=== PATIENT | female | born 1940 | race Caucasian/White ===

== ENCOUNTER 2017-12-18 15:34 | Inpatient (IN) | payer MEDICARE, OTHER ==
[~2017-12-18] VITALS: Ht 157.5 cm; Wt 68.3 kg
[2017-12-18] MEDS ORDERED: SODIUM CHLORIDE 0.9% 1,000ML IVBOLUS ONE ×2 (16:00→22:30)
[2017-12-18] MEDS ORDERED: ONDANSETRON 2MG/ML, 2ML IVPush ONE (16:00)
[2017-12-18] MEDS ORDERED: SODIUM CHLORIDE FLUSH 10ML SYR IVF ONE (16:00)
[2017-12-18 16:26] LABS: MEAN CORPUSCULAR HEMOGLOBIN 31.5 pg (27.0-34.8); MEAN CORPUSCULAR HGB CONC 34.3 g/dL (32.4-35.8); MEAN CORPUSCULAR VOLUME 91.9 fL (80-100); MEAN PLATELET VOLUME 8.1 fL (7.4-10.4); PLATELET COUNT 319 x10^3/uL (130-400); RED BLOOD COUNT 4.89 x10^6/uL (3.82-5.3); RED CELL DISTRIBUTION WIDTH 13.6 % (9.6-15.2)
[2017-12-18 16:35] LABS: ALBUMIN 3.7 g/dL (3.4-5.0); ANION GAP 14 mmol/L (5-15); CALCIUM 8.9 mg/dL (8.5-10.1); CHLORIDE 108 mmol/L (98-107); CREATININE 1.62 mg/dL (0.55-1.02)
[2017-12-18 16:54] LABS: MD YES
[2017-12-18 16:58] LABS: BAND#(MANUAL) 2.41 x10^3/uL; BANDS%(MANUAL) 6 % (0-7); EOS% (MANUAL) 1 % (1-7); MONOS% (MANUAL) 2 % (2-9); SEG#(MANUAL) 36.49 x10^3/uL (1.8-6.8); SEGS% (MANUAL) 91 % (42-75)
[2017-12-18 17:00] LABS: <PLATELET ESTIMATE> ADEQUATE; <PLT MORPHOLOGY> NORMAL PLT MORPH
[2017-12-18] MEDS ORDERED: PIPERACILLIN/TAZO/PMX 3.375GM 50 ML IVPB ONE (17:00)
[2017-12-18] MEDS ORDERED: SODIUM CHLORIDE 0.9%, 500ML IVBOLUS ONE ×2 (17:00→19:30)
[2017-12-18] MEDS ORDERED: ROPI1TAB2 PO (17:06)
[2017-12-18] MEDS ORDERED: ESTR0.5T PO (17:06)
[2017-12-18] MEDS ORDERED: LEVO25TA4 PO (17:07)
[2017-12-18] MEDS ORDERED: LISI1TAB5 PO (17:07)
[2017-12-18 17:45] LABS: ALBUMIN 3.7 g/dL (3.4-5.0)
[2017-12-18 17:50] LABS: ALANINE AMINOTRANSFERASE 22 U/L (12-78); ALKALINE PHOSPHATASE 81 U/L (45-117); BILIRUBIN, DIRECT 0.3 mg/dL (0.1-0.2); BILIRUBIN,INDIRECT 0.8 mg/dL (0.0-2.0); BILIRUBIN,TOTAL 1.1 mg/dL (0.2-1.0); TOTAL PROTEIN 7.9 g/dL (6.4-8.2); TROPONIN I < 0.015 ng/mL (0.000-0.045)
[2017-12-18] MEDS ORDERED: OMNIPAQUE 350 MG/ML, 100ML BOTTLE ONE (18:01)
[2017-12-18] MEDS ORDERED: EPINEPHRINE 1 MG/ML, 1ML ONE (18:05)
[2017-12-18] MEDS ORDERED: FAMOTIDINE 20 MG/2 ML ONE (18:05)
[2017-12-18] MEDS ORDERED: DIPHENHYDRAMINE 50 MG/ML, 1ML ONE (18:05)
[2017-12-18] MEDS ORDERED: ALBUTEROL 0.5%, 20ML ONE (18:10)
[2017-12-18] MEDS ORDERED: PIPERACILLIN/TAZO/PMX 3.375GM 50 ML ONE (18:20)
[2017-12-18 18:33] LABS: CULTURE INDICATED? YES; MICROSCOPIC INDICATED
[2017-12-18] MEDS ORDERED: ACETAMINOPHEN 500 MG TABLET ONE (18:56)
[2017-12-18] MEDS ORDERED: ACETAMINOPHEN 500 MG TABLET PO ONE (19:00)
[2017-12-18 20:04] LABS: MICROSCOPIC INDICATED
[2017-12-18] MEDS ORDERED: MIDAZOLAM 1 MG/ML, 2ML ONE ×2 (20:27→22:42)
[2017-12-18] MEDS ORDERED: FENTANYL PF 100 MCG/2ML ONE (20:27)
[2017-12-18] MEDS ORDERED: LIDOCAINE-MPF 2% ,5ML ONE (20:28)
[2017-12-18] MEDS ORDERED: PROPOFOL 10 MG/ML, 20ML ONE ×2 (20:28→22:11)
[2017-12-18] MEDS ORDERED: ONDANSETRON 2MG/ML, 2ML ONE ×2 (20:29)
[2017-12-18] MEDS ORDERED: DEXAMETHASONE 4 MG/ML, 1ML ONE ×2 (20:29)
[2017-12-18] MEDS ORDERED: METOPROLOL 1 MG/ML, 5ML ONE (21:20)
[2017-12-18] MEDS ORDERED: PHENYLEPHRINE 10 MG/ML ONE (21:20)
[2017-12-18] MEDS ORDERED: PHENYLEPHRINE 10 MG in SODIUM CHLORIDE 0.9% 249 ML IV PRN (22:00)
[2017-12-18] MEDS ORDERED: ROCURONIUM 10MG/ML,5ML ONE (22:11)
[2017-12-18] MEDS ORDERED: DOCUSATE 100 MG CAPSULE PO PRN (22:30)
[2017-12-18] MEDS ORDERED: BISACODYL 10 MG SUPP PR PRN (22:30)
[2017-12-18] MEDS ORDERED: VASOPRESSIN 100 UNIT in SODIUM CHLORIDE 0.9% 495 ML IV PRN (22:30)
[2017-12-18] MEDS ORDERED: NOREPINEPHRINE 4 MG in SODIUM CHLORIDE 0.9% 246 ML IV PRN (22:30)
[2017-12-18] MEDS ORDERED: POLYETHYLENE GLYCOL 17 GM PACKET PO PRN (22:30)
[2017-12-18] MEDS ORDERED: ONDANSETRON 2MG/ML, 2ML IVPush PRN (22:30)
[2017-12-18] MEDS ORDERED: ACETAMINOPHEN 325 MG TABLET PO PRN (22:30)
[2017-12-18] MEDS ORDERED: MIDAZOLAM 1 MG/ML, 2ML IVPush STA (22:42)
[2017-12-18] MEDS ORDERED: OXYcodone 5 MG/5 ML ORAL.SOL UDC PO PRN (23:00)
[2017-12-18] MEDS ORDERED: FENTANYL PF 100 MCG/2ML IV PRN (23:00)
[2017-12-18] MEDS ORDERED: MEPERIDINE/PF 25MG/0.5ML IVPush PRN (23:00)
[2017-12-18] MEDS ORDERED: HYDROmorphone 1 MG/ML, 1ML IV PRN (23:00)
[2017-12-18] MEDS ORDERED: PROPOFOL 100 ML IV ONE (23:43)
[2017-12-19] MEDS ORDERED: FAMOTIDINE 20 MG/2 ML IV SCH
[2017-12-19] MEDS ORDERED: LIDOCAINE-MPF 1%, 2ML ENDO PRN
[2017-12-19] MEDS ORDERED: PHARMACY MAY ADJ FOR RENAL FX MC SCH
[2017-12-19] MEDS: PROPOFOL 100 ML IV PRN ×2 (00:12→03:44)
[2017-12-19] MEDS: MEROPENEM 1 GM in SODIUM CHLORIDE 0.9% 100 ML IV SCH ×3 (00:15→18:35)
[2017-12-19] MEDS: SODIUM CHLORIDE 0.9% 1,000 ML IV SCH ×2 (00:21→18:39)
[2017-12-19] MEDS: HEPARIN 5,000 UNITS/ML, 1ML SQ SCH ×3 (00:24→18:31)
[2017-12-19] MEDS ORDERED: SODIUM BICARB 8.4%, 50ML SYRINGE IVPush ONE ×2 (01:30)
[2017-12-19 04:00] VITALS: BP 117/77
[2017-12-19 05:23] LABS: ALBUMIN 2.4 g/dL (3.4-5.0); ANION GAP 12 mmol/L (5-15); CALCIUM 7.1 mg/dL (8.5-10.1); CHLORIDE 112 mmol/L (98-107)
[2017-12-19 05:26] LABS: ALANINE AMINOTRANSFERASE 35 U/L (12-78); ALKALINE PHOSPHATASE 55 U/L (45-117); BILIRUBIN,TOTAL 1.4 mg/dL (0.2-1.0); CREATININE 1.86 mg/dL (0.55-1.02); TOTAL PROTEIN 5.4 g/dL (6.4-8.2)
[2017-12-19 05:34] LABS: MEAN CORPUSCULAR HEMOGLOBIN 32.1 pg (27.0-34.8); MEAN CORPUSCULAR HGB CONC 34.6 g/dL (32.4-35.8); MEAN CORPUSCULAR VOLUME 92.8 fL (80-100); RED BLOOD COUNT 4.09 x10^6/uL (3.82-5.3); RED CELL DISTRIBUTION WIDTH 13.8 % (9.6-15.2)
[2017-12-19 05:38] LABS: MD YES
[2017-12-19 05:57] LABS: BAND#(MANUAL) 13.64 x10^3/uL; BANDS%(MANUAL) 23 % (0-7); METAMYELOCYTES# (MANUAL) 2.97 x10^3/uL (0-0); METAMYELOCYTES% (MANUAL) 5 % (0-1); MONOS#(MANUAL) 0.59 x10^3/uL (0.3-2.7); MONOS% (MANUAL) 1 % (2-9); SEGS% (MANUAL) 71 % (42-75)
[2017-12-19 05:58] LABS: <PLATELET ESTIMATE> ADEQUATE; LARGE PLATELETS 1+; SMUDGE CELLS 1+
[2017-12-19 05:59] LABS: <RBC MORPHOLOGY> NORMAL
[2017-12-19 06:02] LABS: MEAN PLATELET VOLUME 8.7 fL (7.4-10.4); PLATELET COUNT 247 x10^3/uL (130-400)
[2017-12-19] MEDS ORDERED: POTASSIUM PHOSPHATE 44 MEQ in SODIUM CHLORIDE 0.9% 500 ML IV ONE (07:30)
[2017-12-19] MEDS ORDERED: MAGNESIUM SULFATE PMX 2GM/50ML 50 ML IV ONE ×2 (07:30→09:00)
[2017-12-19] MEDS: PANTOPRAZOLE 40 MG IV IVPush SCH (07:54)
[2017-12-19] MEDS: LEVOTHYROXINE 25 MCG TABLET PO SCH (11:06)
[2017-12-19] MEDS: ROPINIROLE 1MG TABLET PO SCH (20:46)
[2017-12-20] MEDS: HEPARIN 5,000 UNITS/ML, 1ML SQ SCH ×3 (01:13→16:52)
[2017-12-20] MEDS: MEROPENEM 1 GM in SODIUM CHLORIDE 0.9% 100 ML IV SCH ×3 (01:18→16:52)
[2017-12-20 04:00] VITALS: BP 116/63
[2017-12-20 04:41] LABS: MEAN CORPUSCULAR HEMOGLOBIN 31.9 pg (27.0-34.8); MEAN CORPUSCULAR HGB CONC 33.9 g/dL (32.4-35.8); MEAN CORPUSCULAR VOLUME 94.1 fL (80-100); MEAN PLATELET VOLUME 8.3 fL (7.4-10.4); PLATELET COUNT 123 x10^3/uL (130-400); RED CELL DISTRIBUTION WIDTH 14.1 % (9.6-15.2)
[2017-12-20 04:52] LABS: ALANINE AMINOTRANSFERASE 31 U/L (12-78); ALBUMIN 2.4 g/dL (3.4-5.0); ANION GAP 7 mmol/L (5-15); CALCIUM 7.4 mg/dL (8.5-10.1); CHLORIDE 116 mmol/L (98-107)
[2017-12-20 04:54] LABS: ALKALINE PHOSPHATASE 61 U/L (45-117); CREATININE 1.05 mg/dL (0.55-1.02); TOTAL PROTEIN 5.5 g/dL (6.4-8.2)
[2017-12-20 04:59] LABS: MD YES
[2017-12-20 05:00] LABS: BAND#(MANUAL) 1.74 x10^3/uL; BANDS%(MANUAL) 5 % (0-7); LYMPH#(MANUAL) 1.74 x10^3/uL (1-3.4); LYMPHS% (MANUAL) 5 % (22-44); MONOS#(MANUAL) 1.74 x10^3/uL (0.3-2.7); MONOS% (MANUAL) 5 % (2-9); SEGS% (MANUAL) 85 % (42-75)
[2017-12-20 05:01] LABS: <PLATELET ESTIMATE> DECREASED; <PLT MORPHOLOGY> NORMAL PLT MORPH; <RBC MORPHOLOGY> NORMAL
[2017-12-20] MEDS: LEVOTHYROXINE 25 MCG TABLET PO SCH (09:18)
[2017-12-20] MEDS: PANTOPRAZOLE 40 MG IV IVPush SCH (09:18)
[2017-12-20] MEDS: ROPINIROLE 1MG TABLET PO SCH (20:53)
[2017-12-21] MEDS: MEROPENEM 1 GM in SODIUM CHLORIDE 0.9% 100 ML IV SCH ×3 (00:58→16:53)
[2017-12-21] MEDS: HEPARIN 5,000 UNITS/ML, 1ML SQ SCH ×3 (00:59→16:54)
[2017-12-21 02:16] VITALS: BP 147/94
[2017-12-21 05:38] LABS: MEAN CORPUSCULAR HEMOGLOBIN 31.7 pg (27.0-34.8); MEAN CORPUSCULAR HGB CONC 34.1 g/dL (32.4-35.8); MEAN CORPUSCULAR VOLUME 93.2 fL (80-100); MEAN PLATELET VOLUME 8.9 fL (7.4-10.4); PLATELET COUNT 145 x10^3/uL (130-400); RED CELL DISTRIBUTION WIDTH 14.2 % (9.6-15.2)
[2017-12-21 05:44] LABS: CHLORIDE 112 mmol/L (98-107)
[2017-12-21 05:51] LABS: ANION GAP 9 mmol/L (5-15); CALCIUM 7.9 mg/dL (8.5-10.1); CREATININE 0.93 mg/dL (0.55-1.02); TRIGLYCERIDES 167 mg/dL (50-200)
[2017-12-21 06:07] LABS: MD YES
[2017-12-21 06:11] LABS: <RBC MORPHOLOGY> NORMAL; BAND#(MANUAL) 0.52 x10^3/uL; BANDS%(MANUAL) 2 % (0-7); LYMPH#(MANUAL) 1.05 x10^3/uL (1-3.4); LYMPHS% (MANUAL) 4 % (22-44); SEG#(MANUAL) 24.63 x10^3/uL (1.8-6.8); SEGS% (MANUAL) 94 % (42-75)
[2017-12-21 06:12] LABS: <PLATELET ESTIMATE> ADEQUATE; <PLT MORPHOLOGY> NORMAL PLT MORPH
[2017-12-21 07:03] VITALS: BP 138/89
[2017-12-21] MEDS: PANTOPRAZOLE 40 MG IV IVPush SCH (08:22)
[2017-12-21] MEDS: LEVOTHYROXINE 25 MCG TABLET PO SCH (08:22)
[2017-12-21] MEDS ORDERED: POTASSIUM PHOSPHATE 44 MEQ in SODIUM CHLORIDE 0.9% 500 ML IV ONE (09:00)
[2017-12-21 12:17] VITALS: BP 141/95
[2017-12-21] MEDS ORDERED: LACTATED RINGERS 500 ML IVBOLUS ONE (15:30)
[2017-12-21 18:36] VITALS: BP 136/88
[2017-12-21] MEDS: ENOXAPARIN 40 MG/0.4 ML SQ SCH (21:27)
[2017-12-21] MEDS: CEFTRIAXONE 2 GM in SODIUM CHLORIDE 0.9% 50 ML IV SCH (21:27)
[2017-12-21] MEDS: FAMOTIDINE 20 MG TABLET PO SCH (21:27)
[2017-12-21] MEDS: ROPINIROLE 1MG TABLET PO SCH (21:27)
[2017-12-22 01:42] VITALS: BP 124/79
[2017-12-22 05:48] LABS: BASOPHILS # (AUTO) 0.05 x10^3/uL (0-0.1); BASOPHILS % (AUTO) 0 % (0-1); EOSINOPHILS # (AUTO) 0.28 x10^3/uL (0-0.4); EOSINOPHILS % (AUTO) 2 % (1-7); LYMPHOCYTES # (AUTO) 2.34 x10^3/uL (1-3.4); LYMPHOCYTES % (AUTO) 19 % (22-44); MD NO; MEAN CORPUSCULAR HEMOGLOBIN 31.3 pg (27.0-34.8); MEAN CORPUSCULAR HGB CONC 33.9 g/dL (32.4-35.8); MEAN CORPUSCULAR VOLUME 92.3 fL (80-100); MEAN PLATELET VOLUME 8.6 fL (7.4-10.4); MONOCYTES # (AUTO) 0.99 x10^3/uL (0.2-0.8); MONOCYTES % (AUTO) 8 % (2-9); NEUTROPHILS # (AUTO) 8.65 x10^3/uL (1.8-6.8); NEUTROPHILS % (AUTO) 70 % (42-75); PLATELET COUNT 179 x10^3/uL (130-400); RED BLOOD COUNT 3.96 x10^6/uL (3.82-5.3); RED CELL DISTRIBUTION WIDTH 13.7 % (9.6-15.2)
[2017-12-22 05:51] LABS: ANION GAP 6 mmol/L (5-15); CALCIUM 8.2 mg/dL (8.5-10.1); CHLORIDE 111 mmol/L (98-107); CREATININE 0.81 mg/dL (0.55-1.02)
[2017-12-22 08:16] VITALS: BP 148/92
[2017-12-22] MEDS ORDERED: SODIUM PHOSPHATE 20 MMOL in SODIUM CHLORIDE 0.9% 500 ML IV ONE (08:30)
[2017-12-22] MEDS ORDERED: POTASSIUM CHLORIDE 20 MEQ TAB.ER.PRT PO ONE (08:30)
[2017-12-22] MEDS: FAMOTIDINE 20 MG TABLET PO SCH ×2 (09:30→21:10)
[2017-12-22] MEDS: LEVOTHYROXINE 25 MCG TABLET PO SCH (09:30)
[2017-12-22 13:38] VITALS: BP 123/54
[2017-12-22] MEDS: CEFTRIAXONE 2 GM in SODIUM CHLORIDE 0.9% 50 ML IV SCH (18:15)
[2017-12-22 19:32] VITALS: BP 146/86
[2017-12-22] MEDS: ENOXAPARIN 40 MG/0.4 ML SQ SCH (21:10)
[2017-12-22] MEDS: ROPINIROLE 1MG TABLET PO SCH (21:10)
[2017-12-23 00:38] VITALS: BP 130/99
[2017-12-23 05:34] LABS: BASOPHILS # (AUTO) 0.05 x10^3/uL (0-0.1); BASOPHILS % (AUTO) 1 % (0-1); EOSINOPHILS # (AUTO) 0.29 x10^3/uL (0-0.4); EOSINOPHILS % (AUTO) 3 % (1-7); LYMPHOCYTES # (AUTO) 2.43 x10^3/uL (1-3.4); LYMPHOCYTES % (AUTO) 25 % (22-44); MD NO; MEAN CORPUSCULAR HGB CONC 33.5 g/dL (32.4-35.8); MEAN CORPUSCULAR VOLUME 92.4 fL (80-100); MEAN PLATELET VOLUME 8.2 fL (7.4-10.4); MONOCYTES # (AUTO) 0.87 x10^3/uL (0.2-0.8); MONOCYTES % (AUTO) 9 % (2-9); NEUTROPHILS # (AUTO) 6.28 x10^3/uL (1.8-6.8); NEUTROPHILS % (AUTO) 63 % (42-75); PLATELET COUNT 204 x10^3/uL (130-400); RED BLOOD COUNT 3.94 x10^6/uL (3.82-5.3)
[2017-12-23 08:08] VITALS: BP 156/105
[2017-12-23 09:12] VITALS: BP 160/98
[2017-12-23] MEDS: LEVOTHYROXINE 25 MCG TABLET PO SCH (09:13)
[2017-12-23] MEDS: FAMOTIDINE 20 MG TABLET PO SCH (09:13)
[2017-12-23] MEDS ORDERED: ACID1TAB3 PO (10:34)
[2017-12-23] MEDS ORDERED: CEFD300C37 PO (10:34)
[2017-12-23 12:08] VITALS: BP 137/88
== END 2017-12-23 13:21 | disposition home or self-care (01) | DRG 871 ==
LOC: ED 20:23 → EDIP 22:34 → CCU 22:58 → 4WST 12-20 16:36
PROVIDERS: ADMIT Hospitalist; ATTEND Hospitalist
PROC: 5A1935Z Respiratory Ventilation, Less than 24 Consecutive Hours (ICD-10-PCS; 2017-12-18)
PROC: 0BH17EZ Insertion of Endotracheal Airway into Trachea, Via Natural or Artificial Opening (ICD-10-PCS; 2017-12-18)
PROC: 0T9B70Z Drainage of Bladder with Drainage Device, Via Natural or Artificial Opening (ICD-10-PCS; 2017-12-18)
PROC: 0T768DZ Dilation of Right Ureter with Intraluminal Device, Via Natural or Artificial Opening Endoscopic (ICD-10-PCS; principal; 2017-12-18 21:00)
DX: A41.9 Sepsis, unspecified organism (principal); J96.00 Acute respiratory failure, unspecified whether with hypoxia or hypercapnia; R65.21 Severe sepsis with septic shock; E43 Unspecified severe protein-calorie malnutrition; N17.9 Acute kidney failure, unspecified; N13.6 Pyonephrosis; E87.2 Acidosis; I47.1 Supraventricular tachycardia; T88.6XXA Anaphylactic reaction due to adverse effect of correct drug or medicament properly administered, initial encounter; Z99.11 Dependence on respirator [ventilator] status; I10 Essential (primary) hypertension; T50.995A Adverse effect of other drugs, medicaments and biological substances, initial encounter; B96.20 Unspecified Escherichia coli [E. coli] as the cause of diseases classified elsewhere; E03.9 Hypothyroidism, unspecified; Z68.27 Body mass index [BMI] 27.0-27.9, adult; Z85.42 Personal history of malignant neoplasm of other parts of uterus; Z90.710 Acquired absence of both cervix and uterus; Y92.89 Other specified places as the place of occurrence of the external cause
CPT/HCPCS: 36415; 36600; 71045; 74018; 74177; 76000; 80048; 80053; 80076; 81001; 82040; 82533; 82803; 83605; 83735; 84100; 84443; 84478; 84484; 85025; 87040; 87070; 87077; 87081; 87086; 87186; 87205; 93005; 93306; 94002; 94003; 94644; 96361; 96365; J0696; J1100; J1644; J1650; J2185; J2250; J2405; J2543; J2704; J3010; J3490; J7120; Q9967; C1769; C2617; C9113; J2370; J3475; J7030; J7040; S0028